=== PATIENT | male | born 1975 | race Caucasian/White ===

== ENCOUNTER → 2022-10-23 09:02 | Outpatient (CLI) | payer BC, SELFPAY ==
[2022-10-22 16:09] LABS: Basophils % 0.6 % (0.1-2.0); Eosinophils # 0.1 K/mm3 (0.0-0.4); Eosinophils % 1.8 % (0.1-12.0); Hematocrit 46.1 % (42.0-52.0); Hemoglobin 15.2 g/dL (14.1-18.0); Lymphocytes # 1.9 K/mm3 (0.7-4.5); Mean Corpuscular HGB Conc 32.9 g/dL (31.8-35.4); Mean Corpuscular Hemoglobin 29.8 pg (27.0-31.2); Mean Corpuscular Volume 90.5 fl (80-94); Mean Platelet Volume 9.1 fl (7.4-10.4); Monocytes # 0.4 K/mm3 (0.1-1.0); Monocytes % 7.6 % (1.7-9.3); Neutrophils # 2.6 K/mm3 (1.8-7.8); Neutrophils % 51.9 % (37.0-80.0); Platelet Count 253 K/mm3 (142-424); Red Blood Count 5.09 M/mm3 (4.60-6.20); Red Cell Distribution Width 12.6 % (11.5-17.5); White Blood Count 4.9 K/mm3 (4.8-10.8)
[2022-10-22 16:12] LABS: Alanine Aminotransferase 43 U/L (12-78); Albumin Level 4.4 g/dl (3.5-5.0); Albumin/Globulin Ratio 1.8 (1.1-1.8); Alkaline Phosphatase 86 U/L (38-126); Aspartate Amino Transferase 42 U/L (17-59); Bilirubin,Total 0.9 mg/dl (0.2-1.3); Blood Urea Nitrogen 16 mg/dl (9-20); Calcium 9.1 mg/dl (8.4-10.2); Carbon Dioxide 27 mmol/L (22.0-30.0); Chloride 102 mmol/L (98-107); Chol/HDL Ratio 3.7 (1-3.5); Cholesterol 215 mg/dl (140-200); Estimated Glomerular Filt Rate 91 ml/min (>60); GFR (African American) 110 ML/MIN (>60); Globulin 2.5 g/dL (1.3-3.2); Glucose 94 mg/dl (74-100); HDL Cholesterol 58 mg/dl (40-60); Sodium 139 mmol/L (136-145); Total Protein,Serum 6.9 g/dl (6.3-8.2); Triglycerides 82 mg/dl (30-150); VLDL Cholesterol 16 mg/dL (0-40)
[2022-10-22 16:23] LABS: Direct LDL Cholesterol 135.42 mg/dL (100-129)
[2022-10-22 16:31] LABS: Hemoglobin A1C 5.2 % (4.0-6.0)
[2022-10-22 16:42] LABS: Thyroid Stimulating Hormone 1.06 uIU/mL (0.465-4.68)
== END ==
PROVIDERS: PCP Nurse Practitioner Family; Visit Provider Nurse Practitioner Family
DX: I10 Essential (primary) hypertension; Z79.899 Other long term (current) drug therapy
CPT/HCPCS: 80053; 80061; 83036; 84443; 85025

== ENCOUNTER 2024-04-23 15:01 | Outpatient (CLI) | payer BC, SELFPAY ==
--- NOTE | 2024-04-23 15:05 | XR_ITS ---
FINAL REPORT TECHNIQUE: 3 views CLINICAL HISTORY: back pain FINDINGS: There is no fracture present. There is minimal levoscoliosis. There are no significant degenerative changes. IMPRESSION: No acute process. Reviewed, Interpreted and Dictated by Bill Nj MD Transcribed by Carissa Velez Authenticated and [facility]
--- NOTE | 2024-04-23 15:05 | XR_ITS ---
FINAL REPORT TECHNIQUE: 5 views CLINICAL HISTORY: back pain FINDINGS: There is no fracture present. There is no malalignment. There is minimal disc space narrowing at C5-6 and C6-7. IMPRESSION: No acute process. Reviewed, Interpreted and Dictated by Bill Nj MD Transcribed by Carissa Velez Authenticated and [facility]
--- NOTE | 2024-04-23 15:05 | XR_ITS ---
FINAL REPORT TECHNIQUE: 5 views CLINICAL HISTORY: back pain FINDINGS: There is no fracture present. There is no malalignment. There are no significant degenerative changes. IMPRESSION: No acute process. Reviewed, Interpreted and Dictated by Bill Nj MD Transcribed by Carissa Velez Authenticated and . [facility]
== END 2024-04-23 23:59 | disposition home or self-care (01) ==
LOC: RAD 15:02
PROVIDERS: PCP Family Medicine; Visit Provider Nurse Practitioner Family
DX: M54.9 Dorsalgia, unspecified (principal); M54.50 Low back pain, unspecified
CPT/HCPCS: 72050; 72072; 72110